=== PATIENT | male | born 1965 | race African-American/Black ===

== ENCOUNTER 2022-12-24 14:27 | Inpatient (IN) | payer OTHER ==
[2022-12-24 14:56] VITALS: BMI 20.9
[2022-12-24] MEDS ORDERED: IBUPROFEN 600 MG TABLET (FP) PO PRN (18:56)
[2022-12-24] MEDS ORDERED: NALOXONE HCL (KLOXXADO) 8 MG SPRAY NS PRN (18:56)
[2022-12-24] MEDS ORDERED: guaiFENesin 600 MG TABLET.ER (FP) PO PRN (18:56)
[2022-12-24] MEDS ORDERED: POLYETHYLENE GLYCOL (HEALTHYLAX) 3350 17 GM PACKET PO PRN (18:56)
[2022-12-24] MEDS ORDERED: BENZOCAINE/MENTHOL (CHLORASEPTIC ) LOZENGE MM PRN (18:56)
[2022-12-24] MEDS ORDERED: DICYCLOMINE HCL 10 MG CAPSULE PO PRN (18:56)
[2022-12-24] MEDS ORDERED: ACETAMINOPHEN 325 MG TABLET (FP) PO PRN (18:56)
[2022-12-24] MEDS ORDERED: BENZONATATE 200 MG CAPSULE PO PRN (18:56)
[2022-12-24] MEDS ORDERED: IBUPROFEN 400 MG TABLET (FP) PO PRN (18:56)
[2022-12-24] MEDS ORDERED: METHOCARBAMOL 500 MG TABLET PO PRN (18:56)
[2022-12-24] MEDS ORDERED: hydrOXYzine PAMOATE 25 MG CAPSULE (FP) PO PRN (18:56)
[2022-12-24] MEDS ORDERED: ONDANSETRON *ODT* 4 MG TABLET SL PRN (18:56)
[2022-12-24] MEDS ORDERED: LOPERAMIDE HCL 2 MG CAPSULE PO PRN (18:56)
[2022-12-24] MEDS ORDERED: MAG HYDROX/AL HYDROX/SIMETH 30 ML UNIT-DOSE CUP PO PRN (18:56)
[2022-12-24] MEDS ORDERED: LORazepam 1 MG TABLET PO PRN (18:56)
[2022-12-24] MEDS ORDERED: NALOXONE HCL 0.4 MG/ML VIAL IM PRN (18:56)
[2022-12-24] MEDS ORDERED: MAGNESIUM HYDROX 2400MG/30ML ORAL SUSPENSION 30 ML CUP PO PRN (18:56)
[2022-12-24] MEDS ORDERED: BISMUTH SUBSALICYLATE 524 MG/30 ML PO PRN (18:56)
[2022-12-24] MEDS ORDERED: ALBUTEROL SO4 HFA INHALER IH PRN (19:00)
[2022-12-24] MEDS: NICOTINE POLACRILEX 2 MG GUM BUC PRN (19:57)
[2022-12-24] MEDS ORDERED: MELATONIN 5 MG TABLETS PO SCH (22:00)
[2022-12-24] MEDS: LORazepam 2 MG TABLET PO SCH (22:30)
[2022-12-24] MEDS: THIAMINE HCL 100 MG TABLET (FP) PO SCH (22:32)
[2022-12-24] MEDS: BUDESONIDE/FORMETEROL FUMARATE 80/4.5 mcg INHALER IH SCH (22:33)
[2022-12-25] MEDS: LORazepam 2 MG TABLET PO SCH ×4 (05:35→22:41)
[2022-12-25] MEDS: metFORMIN HCL 500 MG TABLET (FP) PO SCH ×2 (06:20→17:30)
[2022-12-25] MEDS: BUDESONIDE/FORMETEROL FUMARATE 80/4.5 mcg INHALER IH SCH ×2 (10:06→22:44)
[2022-12-25] MEDS: PANTOPRAZOLE 40 MG TABLET PO SCH (10:06)
[2022-12-25] MEDS: PRENATAL VITAMINS W/ FOLIC ACID TABLET (FP) PO SCH (10:07)
[2022-12-25] MEDS: QUEtiapine FUMARATE 50 MG TABLET PO SCH (10:07)
[2022-12-25] MEDS: amLODIPine BESYLATE 10 MG TABLET (FP) PO SCH (10:07)
[2022-12-25] MEDS: NICOTINE POLACRILEX 2 MG GUM BUC PRN ×3 (10:08→22:44)
[2022-12-25 11:12] LABS: HEMATOCRIT 44.2 % (35.4-49); HEMOGLOBIN 14.1 GM/dL (11.7-16.9); MCH 28.3 pg (25.7-33.7); MEAN CELL VOLUME 88.6 fl (80-96); MEAN PLT VOLUME 11.1 fl (7.5-11.1); PLATELET COUNT 181 10^3/uL (134-434); RBC 4.99 M/mm3 (4.00-5.60); RDW 14.5 % (11.9-15.9); WHITE BLOOD COUNT 6.4 K/mm3 (4.0-10.0)
[2022-12-25 11:18] LABS: POTASSIUM 4.1 mmol/L (3.5-5.1)
[2022-12-25 11:37] LABS: CALCIUM 8.7 mg/dL (8.5-10.1)
[2022-12-25 11:38] LABS: ALBUMIN 3.6 g/dl (3.4-5.0); BLOOD UREA NITROGEN 12.6 mg/dL (7-18)
[2022-12-25 11:40] LABS: CREATININE 0.8 mg/dL (0.55-1.3)
[2022-12-25 11:42] LABS: BILIRUBIN,TOTAL 0.6 mg/dL (0.2-1); TOT PROT 6.9 g/dl (6.4-8.2)
[2022-12-25] MEDS ORDERED: amLODIPine BESYLATE 10 MG TABLET (FP) PO SCH (15:30)
[2022-12-25] MEDS: THIAMINE HCL 100 MG TABLET (FP) PO SCH (22:40)
[2022-12-25] MEDS: traZODone HCL 50 MG TABLET (FP) PO SCH (22:41)
[2022-12-25] MEDS: QUEtiapine FUMARATE 100 MG TABLET (FP) PO SCH (22:41)
[2022-12-26] MEDS: LORazepam 1 MG TABLET PO SCH ×4 (06:00→22:22)
[2022-12-26] MEDS: metFORMIN HCL 500 MG TABLET (FP) PO SCH ×2 (06:05→17:06)
[2022-12-26] MEDS: QUEtiapine FUMARATE 50 MG TABLET PO SCH (11:06)
[2022-12-26] MEDS: PANTOPRAZOLE 40 MG TABLET PO SCH (11:06)
[2022-12-26] MEDS: PRENATAL VITAMINS W/ FOLIC ACID TABLET (FP) PO SCH (11:06)
[2022-12-26] MEDS: BUDESONIDE/FORMETEROL FUMARATE 80/4.5 mcg INHALER IH SCH ×2 (11:07→22:22)
[2022-12-26] MEDS: amLODIPine BESYLATE 10 MG TABLET (FP) PO SCH (11:08)
[2022-12-26] MEDS: NICOTINE POLACRILEX 2 MG GUM BUC PRN (11:12)
[2022-12-26] MEDS: traZODone HCL 50 MG TABLET (FP) PO SCH (22:21)
[2022-12-26] MEDS: THIAMINE HCL 100 MG TABLET (FP) PO SCH (22:21)
[2022-12-26] MEDS: QUEtiapine FUMARATE 100 MG TABLET (FP) PO SCH (22:21)
[2022-12-27] MEDS ORDERED: LORazepam 0.5 MG TABLET PO PRN
[2022-12-27] MEDS: LORazepam 0.5 MG TABLET PO SCH ×4 (05:29→22:19)
[2022-12-27] MEDS: metFORMIN HCL 500 MG TABLET (FP) PO SCH ×2 (06:03→17:25)
[2022-12-27] MEDS: QUEtiapine FUMARATE 50 MG TABLET PO SCH (10:30)
[2022-12-27] MEDS: amLODIPine BESYLATE 10 MG TABLET (FP) PO SCH (10:30)
[2022-12-27] MEDS: PANTOPRAZOLE 40 MG TABLET PO SCH (10:30)
[2022-12-27] MEDS: NICOTINE POLACRILEX 2 MG GUM BUC PRN ×2 (10:31→17:39)
[2022-12-27] MEDS: PRENATAL VITAMINS W/ FOLIC ACID TABLET (FP) PO SCH (10:31)
[2022-12-27] MEDS: BUDESONIDE/FORMETEROL FUMARATE 80/4.5 mcg INHALER IH SCH ×2 (10:31→22:19)
[2022-12-27] MEDS: QUEtiapine FUMARATE 100 MG TABLET (FP) PO SCH (22:19)
[2022-12-27] MEDS: THIAMINE HCL 100 MG TABLET (FP) PO SCH (22:19)
[2022-12-27] MEDS: traZODone HCL 50 MG TABLET (FP) PO SCH (22:19)
[2022-12-28] MEDS ORDERED: LORazepam 0.5 MG TABLET PO ONE (05:00)
[2022-12-28] MEDS: metFORMIN HCL 500 MG TABLET (FP) PO SCH (07:09)
[2022-12-28] MEDS: PANTOPRAZOLE 40 MG TABLET PO SCH (10:25)
[2022-12-28] MEDS: QUEtiapine FUMARATE 50 MG TABLET PO SCH (10:25)
[2022-12-28] MEDS: BUDESONIDE/FORMETEROL FUMARATE 80/4.5 mcg INHALER IH SCH (10:25)
[2022-12-28] MEDS: amLODIPine BESYLATE 10 MG TABLET (FP) PO SCH (10:25)
[2022-12-28] MEDS: PRENATAL VITAMINS W/ FOLIC ACID TABLET (FP) PO SCH (10:25)
[2022-12-28 10:54] VITALS: BP 142/80; PULSE 82; RESP 19; TEMP 98.1
== END 2022-12-28 11:15 | disposition home or self-care (01) | DRG 774 ==
LOC: YASAS 14:27 → Y6N 19:33
PROVIDERS: ADMIT Allergy & Immunology; ATTEND Allergy & Immunology
PROC: HZ2ZZZZ Detoxification Services for Substance Abuse Treatment (ICD-10-PCS; principal; 2022-12-24)
DX: F10.230 Alcohol dependence with withdrawal, uncomplicated (principal); F14.20 Cocaine dependence, uncomplicated; F12.20 Cannabis dependence, uncomplicated; F17.210 Nicotine dependence, cigarettes, uncomplicated; F25.9 Schizoaffective disorder, unspecified; F10.282 Alcohol dependence with alcohol-induced sleep disorder; I10 Essential (primary) hypertension; J43.0 Unilateral pulmonary emphysema [MacLeod's syndrome]; J45.20 Mild intermittent asthma, uncomplicated; K21.9 Gastro-esophageal reflux disease without esophagitis; Z79.84 Long term (current) use of oral hypoglycemic drugs; Z86.19 Personal history of other infectious and parasitic diseases; Z88.8 Allergy status to other drugs, medicaments and biological substances
CPT/HCPCS: 36415; 71046-TC-FY; 80053; 82962; 85027; 86593; 86780; 87635